=== PATIENT | female | born 1995 | race Caucasian/White ===

== ENCOUNTER 2017-04-21 19:48 | Emergency (ER) | payer SELFPAY ==
--- NOTE | 2017-04-21 20:08 | XR_ITS ---
XR knee LT 3V HISTORY: ITS.REASON: PAIN/NO ACCIDENT ORDERING PHYSICIAN: Rhianna Maria PATIENT AGE: 22 years COMPARISON: None FINDINGS: No fracture or dislocation. No lytic or blastic change. Normal mineralization. No significant arthritic changes evident. There is increased soft tissue density in the suprapatellar region consistent with knee joint effusion IMPRESSION: Suprapatellar effusion otherwise negative
[2017-04-21 20:11] VITALS: BP 127/71; PULSE 89; RESP 20; TEMP 37.1; O2SAT 99; BMI 38.1
--- NOTE | 2017-04-21 20:27 | HMH.EDUTC ---
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) Pain Per Pt Referrals: Arnie Balderas MD [Family Provider] - Time of Disposition: 22:16 Medical Decision Making Vital Signs: 04/21/17 20:11 Temperature 98.7 F Temperature Source Temporal Artery Scan Pulse Rate [Brachial] 89 Respiratory Rate 20 Blood Pressure [Left Arm] 127/71 Blood Pressure Mean [Left Arm] 89 Blood Pressure Source [Left Arm] Automatic Cuff Blood Pressure Position [Left Arm] Sitting 02 Sat by Pulse Oximetry 99 Oxygen Delivery Method Room Air - Lab Data Lab Results 04/21/17 20:50: Uric Acid 5.8 Orders (Tests/Meds): ED MEDICATIONS Discontinued Medications Generic Name Dose Route Start Last Admin Trade Name Freq PRN Reason Stop Dose Admin Ketorolac Tromethamine 60 mg 04/21/17 21:30 Toradol 60mg/2ml Vial IM 04/21/17 21:31 ONCE ONE ORDERS Category Date Time Status Knee XR left 3 views [XR knee LT 3V] Stat Exams 04/21/17 20:08 Taken - Radiology Data #1 Image(s): Knee Image Reviewed: Yes I reviewed the patient's radiology image w/the ED provider Preliminary Findings: No Fracture Seen Discussed with Dr Mason, no fracture seen - Jasen Inquiry Pt receiving controlled substance: No Jasen was queried for this patient: No - Reevaluation(s) Time: 21:30 (Patient denies pregnacy or chance of pregnacy patient given medication for pain) Time: 22:10 (Discussed xray with Dr Mason no fracture seen will refer back to family doctor for further evaluation) [facility] [place] - General Stated complaint: Left knee pain, no accident Mode of Arrival: Ambulatory Source of Information: Patient Limitations: No Limitations Description of Symptoms (Recalled from Triage Doc. by RN): LEFT KNEE IS SWOLLEN AND FEELS TIGHT, HURTS TO WALK. HEENT Symptoms (Recalled from RN notes): No Resp Symptoms (Recalled from RN notes): No Skin Symptoms (Recalled from RN notes): No MS Symptoms (Recalled from RN notes): Yes Functional Status (Recalled from RN notes): NA - History of Present Illness Provider Complaint: Patient state that she went to bed last night and when she woke up this morning her left knee was swollen and painful when she would move it State that she did not do anything to hurt her knee that she was aware of States that she didn't see any bruising, no discoloration, no changes in color, temperature of skin State that it is just swollen and sore - Related Data Previous Rx's Medication Instructions Recorded Ibuprofen [Motrin 600mg 600 mg PO Q6HP PRN #20 tab 04/21/17 Tablet] Allergies Allergy/AdvReac Type Severity Reaction Status Date / Time No Known Allergies Allergy Verified 04/21/17 20:15 - Worker's Comp Is this a Worker's Comp case?: No [facility] History I have reviewed the patient's past medical history: Yes Medical History: Denies:: Cancer, Diabetes Mellitus Type 1, Diabetes Mellitus Type 2, MRSA Amputation: No - *Social History Alcohol Intake: never - Psychiatric History Expresses thoughts of harming self/others: None Suicide Plan Description: No Plan ROS Obtained: Yes All systems reviewed & no additional complaints - Musculoskeletal Comments: Pain and swelling in left knee area, no known injury State that this has occured several times before but then would just go away Physical Exam - General General appearance: alert, in no apparent distress
--- NOTE | 2017-04-21 20:30 | ED_ITS ---
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) Pain Per Pt Referrals: Arnie Balderas MD [Family Provider] - Time of Disposition: 22:16 Medical Decision Making Vital Signs: 04/21/17 20:11 Temperature 98.7 F Temperature Source Temporal Artery Scan Pulse Rate [Brachial] 89 Respiratory Rate 20 Blood Pressure [Left Arm] 127/71 Blood Pressure Mean [Left Arm] 89 Blood Pressure Source [Left Arm] Automatic Cuff Blood Pressure Position [Left Arm] Sitting 02 Sat by Pulse Oximetry 99 Oxygen Delivery Method Room Air - Lab Data Lab Results 04/21/17 20:50: Uric Acid 5.8 Orders (Tests/Meds): ED MEDICATIONS Discontinued Medications Generic Name Dose Route Start Last Admin Trade Name Freq PRN Reason Stop Dose Admin Ketorolac Tromethamine 60 mg 04/21/17 21:30 Toradol 60mg/2ml Vial IM 04/21/17 21:31 ONCE ONE ORDERS Category Date Time Status Knee XR left 3 views [XR knee LT 3V] Stat Exams 04/21/17 20:08 Taken - Radiology Data #1 Image(s): Knee Image Reviewed: Yes I reviewed the patient's radiology image w/the ED provider Preliminary Findings: No Fracture Seen Discussed with Dr Mason, no fracture seen - Jasen Inquiry Pt receiving controlled substance: No Jasen was queried for this patient: No - Reevaluation(s) Time: 21:30 (Patient denies pregnacy or chance of pregnacy patient given medication for pain) Time: 22:10 (Discussed xray with Dr Mason no fracture seen will refer back to family doctor for further evaluation) [facility] [place] - General Stated complaint: Left knee pain, no accident Mode of Arrival: Ambulatory Source of Information: Patient Limitations: No Limitations Description of Symptoms (Recalled from Triage Doc. by RN): LEFT KNEE IS SWOLLEN AND FEELS TIGHT, HURTS TO WALK. HEENT Symptoms (Recalled from RN notes): No Resp Symptoms (Recalled from RN notes): No Skin Symptoms (Recalled from RN notes): No MS Symptoms (Recalled from RN notes): Yes Functional Status (Recalled from RN notes): NA - History of Present Illness Provider Complaint: Patient state that she went to bed last night and when she woke up this morning her left knee was swollen and painful when she would move it State that she did not do anything to hurt her knee that she was aware of States that she didn't see any bruising, no discoloration, no changes in color, temperature of skin State that it is just swollen and sore - Related Data Previous Rx's Medication Instructions Recorded Ibuprofen [Motrin 600mg 600 mg PO Q6HP PRN #20 tab 04/21/17 Tablet] Allergies Allergy/AdvReac Type Severity Reaction Status Date / Time No Known Allergies Allergy Verified 04/21/17 20:15
[2017-04-21 21:11] LABS: Uric Acid 5.8 mg/dL (2.6-7.2)
== END 2017-04-21 22:26 | disposition home or self-care (01) ==
PROVIDERS: Emergency Provider Nurse Practitioner; Family Provider Internal Medicine Adolescent Medicine
DX: M25.562 Pain in left knee (principal)
CPT/HCPCS: 73562; 84550; 96372; 99202; 99282

== ENCOUNTER → 2019-04-10 09:59 | Outpatient (CLI) | payer BC, SELFPAY ==
[2019-04-10 11:54] LABS: HCG,Quantitative 347 mIU/mL
== END ==
PROVIDERS: Visit Provider Nurse Practitioner Obstetrics & Gynecology
DX: Z34.90 Encounter for supervision of normal pregnancy, unspecified, unspecified trimester (principal)
CPT/HCPCS: 36415; 84702

== ENCOUNTER → 2019-04-12 15:45 | Outpatient (CLI) | payer BC, SELFPAY ==
[2019-04-12 19:22] LABS: HCG,Quantitative 940 mIU/mL
== END ==
PROVIDERS: Visit Provider Nurse Practitioner Obstetrics & Gynecology
DX: Z34.90 Encounter for supervision of normal pregnancy, unspecified, unspecified trimester (principal)
CPT/HCPCS: 36415; 84702

== ENCOUNTER → 2019-04-20 16:16 | Outpatient (CLI) | payer BC, SELFPAY ==
[2019-04-20 19:21] LABS: HCG,Quantitative 11543 mIU/mL
== END ==
PROVIDERS: Visit Provider Nurse Practitioner Obstetrics & Gynecology
DX: Z34.90 Encounter for supervision of normal pregnancy, unspecified, unspecified trimester (principal)
CPT/HCPCS: 36415; 84702

== ENCOUNTER → 2019-04-23 11:07 | Outpatient (CLI) | payer BC, SELFPAY ==
[2019-04-23 12:28] LABS: HCG,Quantitative 19780 mIU/mL
== END ==
PROVIDERS: Visit Provider Nurse Practitioner Obstetrics & Gynecology
DX: O20.0 Threatened abortion (principal)
CPT/HCPCS: 36415; 84702

== ENCOUNTER → 2019-05-16 15:38 | Outpatient (CLI) | payer BC, SELFPAY ==
[2019-05-16 17:26] LABS: Basophils % 0.2 % (0.1-2.0); Eosinophils # 0.2 K/mm3 (0.0-0.4); Eosinophils % 1.9 % (0.1-12.0); Hematocrit 38.4 % (37.0-47.0); Hemoglobin 12.7 g/dL (12.2-16.2); Lymphocytes % 26.6 % (10-50); Mean Corpuscular HGB Conc 33.1 g/dL (31.8-35.4); Mean Corpuscular Hemoglobin 30.7 pg (27.0-31.2); Mean Corpuscular Volume 92.7 fl (81-99); Mean Platelet Volume 7.8 fl (7.4-10.4); Monocytes # 0.4 K/mm3 (0.1-1.0); Monocytes % 3.3 % (1.7-9.3); Neutrophils # 7.6 K/mm3 (1.8-7.8); Neutrophils % 67.9 % (37.0-80.0); Platelet Count 215 K/mm3 (142-424); Red Blood Count 4.14 M/mm3 (4.20-5.40); Red Cell Distribution Width 12.3 % (11.5-17.5); White Blood Count 11.1 K/mm3 (4.8-10.8)
[2019-05-18 16:58] LABS: HIV Screen 4th Generation wRfx Non Reactive (Non Reactive); Hepatitis B Surface Antigen Negative (Negative); Hepatitis C Antibody <0.1 s/co ratio (0.0-0.9); Rapid Plasma Reagin Ab Titer Non Reactive (NonRea<1:1); Rubella Antibodies, IgG 1.51 index (Immune >0.99)
== END ==
PROVIDERS: Visit Provider Nurse Practitioner Obstetrics & Gynecology
DX: Z34.90 Encounter for supervision of normal pregnancy, unspecified, unspecified trimester (principal); Z3A.09 9 weeks gestation of pregnancy
CPT/HCPCS: 36415; 85025; 86592; 86703; 86762; 86850; 87340; 87380; G0432

== ENCOUNTER → 2019-08-01 12:59 | Outpatient (CLI) | payer BC, SELFPAY ==
--- NOTE | 2019-08-01 12:59 | US_ITS ---
PROCEDURE: US OB /MATERNAL DETAIL CLINICAL INDICATION: 20 wk gestation COMPARISON: Anatomy exam FINDINGS: There is a single live fetus which is in cephalic presentation. Cervix is closed measuring 4 cm transabdominal. The placenta is anterior and fundal and grade 1. There is an average appearing amount of amniotic fluid. Complete survey performed and was unremarkable on the submitted images as in PACS. No discrete anomalies identified on survey imaging by technologist. Active fetus. Three-vessel cord with satisfactory umbilical cord insertion. 4- chamber heart noted. Survey of brain & ventricles Unremarkable. Face and neck survey unremarkable. Diaphragm and chest views unremarkable. Abdomen: Both kidneys noted and unremarkable. Stomach noted and satisfactory. Spine: Survey of the spine satisfactory with no anomalies identified nor imaged. Both arms and legs noted. Amniotic Fluid: Adequate. Maternal adnexa: No significant findings. Measurements: Average ultrasound age 20weeks 3days. Gestational Age 20 weeks 2 days Estimated due date by ultrasound age 0912/16/2019. Estimated weight 344g BPD = 20weeks 6days OFD = 20 weeks 4 days HC = 19weeks 6days AC = 20weeks 3days FL = 20weeks 3days Growth Percentile= 46% Heart Rate = 152bpm Cerebellum = 20weeks 6days Humerus = 20weeks 5days HC/AC is 1.14 CI is 0.8 FL/BPD is 0.68 FL/AC is 0.22 IMPRESSION: There is a single live fetus in cephalic presentation with an average ultrasound age of 20 weeks and 3 days. All parameters correlate with no obvious anomalies. Please see above for detail Dictated by: Souleymane Chris MD 08/01/2019 15:55 Electronically signed by Souleymane Chris MD in [place] 08/01/2019 15:55
== END ==
PROVIDERS: PCP Internal Medicine Adolescent Medicine; Visit Provider Nurse Practitioner Obstetrics & Gynecology
DX: Z34.90 Encounter for supervision of normal pregnancy, unspecified, unspecified trimester (principal)
CPT/HCPCS: 76811

== ENCOUNTER → 2019-09-29 07:55 | Outpatient (CLI) | payer BC, SELFPAY ==
[2019-09-29 08:37] LABS: Glucose,Fasting 96 mg/dl (74-100)
[2019-09-29 10:00] LABS: Glucose 1 Hour 126 mg/dL (74-100)
== END ==
PROVIDERS: Visit Provider Nurse Practitioner Obstetrics & Gynecology
DX: Z34.90 Encounter for supervision of normal pregnancy, unspecified, unspecified trimester (principal)
CPT/HCPCS: 36415; 82951

== ENCOUNTER → 2019-10-23 13:07 | Outpatient (CLI) | payer BC, SELFPAY ==
[2019-10-23 14:41] LABS: Coronavirus 19 IgG Antibody Negative (Negative); Coronavirus 19 IgM Antibody Negative (Negative)
== END ==
PROVIDERS: Visit Provider Nurse Practitioner Obstetrics & Gynecology
DX: Z03.818 Encounter for observation for suspected exposure to other biological agents ruled out (principal)
CPT/HCPCS: 36415; 86328

== ENCOUNTER → 2019-11-14 17:30 | Outpatient (CLI) | payer BC, SELFPAY | PROVIDERS: Visit Provider Nurse Practitioner Obstetrics & Gynecology | DX: Z34.90 Encounter for supervision of normal pregnancy, unspecified, unspecified trimester (principal) | CPT/HCPCS: 86403 ==

== ENCOUNTER → 2019-11-22 16:13 | Outpatient (CLI) | payer BC, SELFPAY ==
[2019-11-22 22:35] LABS: Coronavirus 19 IgG Antibody Negative (Negative); Coronavirus 19 IgM Antibody Negative (Negative)
== END ==
PROVIDERS: Visit Provider Nurse Practitioner Obstetrics & Gynecology
DX: Z03.818 Encounter for observation for suspected exposure to other biological agents ruled out (principal)
CPT/HCPCS: 36415; 86328

== ENCOUNTER → 2019-11-30 13:46 | Outpatient (CLI) | payer BC, SELFPAY ==
--- NOTE | 2019-11-30 13:46 | US_ITS ---
PROCEDURE: US OB BIOPHYSICAL PROFILE CLINICAL INDICATION: sga Small for gestational age TECHNIQUE: Transabdominal imaging FINDINGS: This study is submitted to ma for interpretation 12/03/2019 at 401 p.m.. There is a single live fetus present which is in cephalic presentation. The cervix is closed and measures 3 cm. The placenta is anterior and grade 2. Biophysical profile is 8 of 8. Amniotic fluid index is normal at 10 cm. Average ultrasound age is 37 weeks 4 days./BPD is 38 weeks 0 days, OFD 37 weeks 5 days, HC 36 weeks 6 days, AC 37 weeks 2 days, FL 37 weeks 5 days chest. All parameters correlate . Estimated weight is 3192 g which is 54th percentile. No obvious anomalies evident. IMPRESSION: Live IUP in cephalic presentation at 37 weeks 4 days. Biophysical profile 8 of 8 Normal amniotic fluid index. Estimated weight is 3192 g which is 54th percentile Dictated by: Souleymane Chris MD 12/03/2019 16:05 Souleymane Chris MD in [place] 12/03/2019 16:05
== END ==
PROVIDERS: Visit Provider Nurse Practitioner Obstetrics & Gynecology
DX: O36.5990 Maternal care for other known or suspected poor fetal growth, unspecified trimester, not applicable or unspecified (principal)
CPT/HCPCS: 76811; 76819

== ENCOUNTER 2019-12-18 16:09 | Inpatient (IN) | payer BC, SELFPAY ==
[2019-12-18 16:11] VITALS: BMI 43.4
[2019-12-18 16:21] VITALS: BP 146/83; PULSE 107; RESP 18; TEMP 36.8; O2SAT 100
[2019-12-18 16:42] LABS: Basophils % 0.2 % (0.1-2.0); Eosinophils # 0.1 K/mm3 (0.0-0.4); Eosinophils % 0.8 % (0.1-12.0); Hematocrit 31.2 % (37.0-47.0); Hemoglobin 10.8 g/dL (12.2-16.2); Lymphocytes % 32.4 % (10-50); Mean Corpuscular HGB Conc 34.5 g/dL (31.8-35.4); Mean Corpuscular Hemoglobin 28.9 pg (27.0-31.2); Mean Corpuscular Volume 83.7 fl (81-99); Mean Platelet Volume 9.8 fl (7.4-10.4); Microscopic, Urine URINE MICROSCOPIC (MICROSCOPIC); Monocytes # 0.4 K/mm3 (0.1-1.0); Monocytes % 4.1 % (1.7-9.3); Neutrophils # 5.9 K/mm3 (1.8-7.8); Neutrophils % 62.6 % (37.0-80.0); Platelet Count 220 K/mm3 (142-424); Red Blood Count 3.73 M/mm3 (4.20-5.40); Red Cell Distribution Width 16.1 % (11.5-17.5); White Blood Count 9.4 K/mm3 (4.8-10.8)
[2019-12-18 16:45] LABS: Appearance,Urine SL CLOUDY (Clear); Bilirubin,Urine Negative (Negative); Blood, Urine TRACE-I (Negative); Color,Urine YELLOW (Yellow); Glucose,Urine (UA) Negative (Negative); Ketones,Urine Negative (Negative); Leukocyte Esterase,Urine Negative (Negative); Nitrate,Urine Negative (Negative); Protein,Urine Negative (Negative); Specific Gravity, Urine >= 1.030 (1.005-1.030); Urobilinogen,Urine 0.2 EU/dl (0.2)
[2019-12-18 16:56] LABS: Amphetamine/Metha Screen,Urine Negative ng/ml (<1000); Benzodiazepines Screen,Urine Negative ng/ml (<200)
[2019-12-18 16:57] LABS: Barbiturates Screen,Urine Negative ng/ml (<200)
[2019-12-18 16:58] LABS: Cannabinoid Screen,Urine Negative ng/ml (<50); Cocaine Screen,Urine Negative ng/ml (<300)
[2019-12-18 16:59] LABS: Methadone Screen,Urine Negative ng/ml (<300)
[2019-12-18 17:00] LABS: Opiate Screen,Urine Negative ng/ml (<300); Phencyclidine Screen,Urine Negative ng/ml (<25)
[2019-12-18 17:02] VITALS: BP 146/83; PULSE 107; RESP 18; TEMP 36.8; O2SAT 100; BMI 43.4
--- NOTE | 2019-12-18 17:26 | HMH.OBAPHP ---
OB - H&P: HPI Antepartum - History of Present Illness Chief complaint: Postdates and slightly increased blood pressure History of present illness: She is a 24-year-old 1 now para 0 at 40 and 2 weeks gestational age. Her blood pressure was slightly elevated this morning in the office. Since she is postdates we have elected to induce her labor. - History of Present Criteria for establishing EDC:: LMP confirmed by 1st trimester US care: good care Ultrasounds: normal 1st trimester US, normal mid trimester US Obstetrical complications: gestational hypertension Medical complications: none (To know what her blood type is) - Labs Blood type: O (+) positive (and she is GBS negative right) Rubella: immune RPR/VDRL: nonreactive GBS status: negative HBsAG: negative [facility] History I have reviewed the patient's past medical history: Yes Medical History: Denies:: Anxiety, Cancer, Depression, Diabetes Mellitus Type 1, Diabetes Mellitus Type 2, MRSA *Have you ever received a pneumonia vaccine?: No *Have you received a flu vaccine this season?: Yes Other Surgeries: Yes: No Previous Surgery. No: Amputation: No Fractures: No - *Social History Last grade of school completed: High school graduate Smoking Status: Never smoker Alcohol Intake: current Alcohol Intake Frequency:: holidays/special occasions only Substance Use Type: denies use *Occupational Status:: employed Household Members: significant other *Travel in the last 8 weeks: None - Psychiatric History Pschychiatric History:: Denies:: Anxiety, Depression Family Hx:: No significant family history Para: 0 Review of Systems - Review of Systems Review of systems:: pertinent systems reviewed and negative unless documented below Meds Home Medications Medication Instructions Recorded Confirmed Type prenat.vits,edna,lia-tuct-jpkcm 1 tab PO DAILY 04/30/19 12/18/19 History Famotidine [Acid Modular Set Crew Member] 20 mg PO DAILY 12/18/19 12/18/19 History Omeprazole Magnesium 20 mg PO DAILY 12/18/19 12/18/19 History Allergies Allergy/AdvReac Type Severity Reaction Status Date / Time No Known Allergies Allergy Verified 12/18/19 09:39 OB - H&P: Exam - Physical Exam Vital signs: Temp Pulse Resp BP Pulse Ox 98.2 F 107 H 18 146/83 H 100 12/18/19 17:02 12/18/19 17:02 12/18/19 17:02 12/18/19 17:02 12/18/19 17:02 - Constitutional no acute distress - Routine HEENT Exam Head: Present: normocephalic Eye: Present: EOMI, PERRL ENT: Present: mucous membranes moist - Routine Neck Exam Present: supple, full ROM - Routine Respiratory Exam Absent: accessory muscle use (good air entry bilaterally), respiratory distress, wheezes, crackles - Routine Cardiovascular Exam Present: RRR. Absent: murmur - Routine Abdominal Exam Present: soft, normoactive bowel sounds. Absent: tenderness, distended, guarding - Routine Rectal Exam Patient deferred: visual exam, digital exam - Routine Exam Patient deferred: external exam, groin exam, perineal exam - Routine Extremities Exam Present: full ROM. Absent: cyanosis, edema - Routine Skin Exam Present: intact. Absent: cyanosis - Routine Neurological Exam Present: alert, oriented X3 - Routine Psychiatric Exam Present: normal affect OB - Results - Labs Labs: Short CBC 12/18/19 Range/Units 16:30 WBC 9.4 (4.8-10.8) K/mm3 Hgb 10.8 L (12.2-16.2) g/dL Hct 31.2 L (37.0-47.0) % Plt Count 220 (142-424) K/mm3 Urine 12/18/19 Range/Units 16:30 Urine Color Yellow (Yellow) Urine Appearance Sl cloudy (Clear) Urine pH 6.0 (5.0-8.5) Ur Specific [place] >= 1.030 (1.005-1.030) Urine Protein Negative (Negative) Urine Glucose (UA) Negative (Negative) OB - A/P Antepartum (1) Post-term Current visit: Yes Status: Acute (2) Gestational hypertension Current visit: Yes Status: Acute - Addition
[2019-12-18 17:40] LABS: Coronavirus 19 IgG Antibody Negative (Negative); Coronavirus 19 IgM Antibody Negative (Negative)
[2019-12-18 17:57] LABS: Bacteria,Urine 2+ /lpf
--- NOTE | 2019-12-18 19:15 | PC.NURSE ---
Report received from SYD Brumfield.
[2019-12-19] VITALS (20 sets, daily range): BP systolic 122–174; BP diastolic 57–95; PULSE 77–114; RESP 12–18; TEMP 36.4–36.8; O2SAT 99–100
--- NOTE | 2019-12-19 08:11 | HMH.LABNOT ---
Labor Note - Subjective: Date: 12/19/19 Time: 07:15 regular contraction - Objective: NST:: Reactive Contractions:: every 2-3 minutes Cervical Dilation:: 2 Effacement:: 75% Station: -1 Membranes: artificially ruptured Comment:: Clear fluid - Fetus: Monitoring?: Yes monitoring type:: Internal and External Comment:: I inserted an IUPC - Assessment: Labor progressing?: Yes Cephalopelvic disproportion?: No Patient Problems: All Active Problems Post-term (Acute) Gestational hypertension (Acute) (Acute)
[2019-12-19 08:48] LABS: Basophils % 0.3 % (0.1-2.0); Eosinophils # 0.1 K/mm3 (0.0-0.4); Eosinophils % 1.1 % (0.1-12.0); Hematocrit 33.5 % (37.0-47.0); Lymphocytes # 3.3 K/mm3 (0.7-4.5); Lymphocytes % 32.6 % (10-50); Mean Corpuscular HGB Conc 32.9 g/dL (31.8-35.4); Mean Corpuscular Hemoglobin 28.3 pg (27.0-31.2); Mean Platelet Volume 8.9 fl (7.4-10.4); Monocytes # 0.5 K/mm3 (0.1-1.0); Monocytes % 4.8 % (1.7-9.3); Neutrophils # 6.1 K/mm3 (1.8-7.8); Neutrophils % 61.2 % (37.0-80.0); Platelet Count 225 K/mm3 (142-424); Red Cell Distribution Width 15.9 % (11.5-17.5)
[2019-12-19 08:51] LABS: Chloride 106 mmol/L (98-107); Potassium 4.1 mmoL/L (3.5-5.1); Sodium 138 mmol/L (136-145)
[2019-12-19 08:54] LABS: Alanine Aminotransferase 14 U/L (12-78); Anion Gap 13.1 mEq/L (5-15); Aspartate Amino Transferase 25 U/L (14-36); Blood Urea Nitrogen 8 mg/dl (7-17); Calcium 9.3 mg/dl (8.4-10.2); Carbon Dioxide 23 mmol/L (22.0-30.0); Creatinine Clearance Estimated 131 mL/min (50-200); Estimated Glomerular Filt Rate 152 ml/min (>60); GFR (African American) 183 ML/MIN (>60); Glucose 112 mg/dl (74-100)
[2019-12-19 08:55] LABS: Magnesium 1.8 mg/dl (1.6-2.3)
[2019-12-19 09:05] LABS: Activated Partial Thrombo Time 24.1 seconds (23.6-34.0); Fibrinogen 500 mg/dL (204-500); INR 0.95 (0.9-1.1); Prothrombin Time 9.8 seconds (9.4-11.8)
[2019-12-19 09:11] LABS: Uric Acid 5.1 mg/dl (2.5-6.2)
[2019-12-19 09:19] LABS: D-Dimer 1.32 ug/mL (0.15-8.0)
--- NOTE | 2019-12-19 09:41 | HMH.LABNOT ---
Labor Note - Subjective: Date: 12/19/19 Time: 09:41 regular contraction - Objective: NST:: Reactive Contractions:: every 2-3 minutes Cervical Dilation:: 2 Effacement:: 90% Station: -1 Membranes: artificially ruptured - Fetus: Monitoring?: Yes monitoring type:: Internal and External - Assessment: Labor progressing?: Yes Cephalopelvic disproportion?: No Patient Problems: All Active Problems Post-term (Acute) Gestational hypertension (Acute) (Acute) - Plan: Anesthesia for epidural?: No Continue to labor down?: Yes Plan for ?: No Continue to monitor?: Yes Start pushing?: No Comment:: Her blood pressure was quite elevated in the 170/100 range. I suspect it was result of having discomfort. Regardless we have started her on magnesium sulfate and we have done a PIH work-up.
--- NOTE | 2019-12-19 10:41 | HMH.ANESCL ---
[facility] Anesthesia Checklist - Patient Identification Patient Identification: Arm Band, Verbal (Name & ) - Structural Data Admitted From: Inpatient Planned Operative Procedure/s: labour epidural Consent for Planned Operative Procedure(s) Verified: Yes Verified Documents: History and Physical - NPO Status Verified Time NPO: 05:00 - Chart Verification Results Verified: CBC, BMP - Additional verifications Patient : Yes Anesthesia Reactions: No Hx Blood Transfusions: No Blood Transfusion Reaction: No Cephalosporin Allergy: No Previous Colonoscopy: No - Cardiovascular Assessment Heart Sounds: S1 & S2 Pulse Strength: Baseline Pulse Rhythm: Regular Peripheral Edema: No - Airway Assessment C-Spine Mobility Assessed: Yes TMJ Mobility Assessed: Yes Dentition: Good Dentition - Neurological Assessment Level of Consciousness: Awake, Alert, Appropriate Hx Seizures: No Numbness or tingling in extremities: No - Anesthesia Plan Anesthesia Risk discussed: Yes Anesthesia Plan: Verified ASA Class: II Anesthesia Type: Epidural [facility] History I have reviewed the patient's past medical history: Yes Medical History: Denies:: Anxiety, Cancer, Depression, Diabetes Mellitus Type 1, Diabetes Mellitus Type 2, MRSA *Have you ever received a pneumonia vaccine?: No *Have you received a flu vaccine this season?: Yes Anesthesia experience/problems:: none Other Surgeries: Yes: No Previous Surgery. No: Amputation: No Fractures: No - *Social History Last grade of school completed: High school graduate Smoking Status: Never smoker Alcohol Intake: current Alcohol Intake Frequency:: holidays/special occasions only Substance Use Type: denies use *Occupational Status:: employed Household Members: significant other *Travel in the last 8 weeks: None - Psychiatric History Pschychiatric History:: Denies:: Anxiety, Depression Family Hx:: No significant family history Para: 0
--- NOTE | 2019-12-19 11:51 | HMH.LABNOT ---
Labor Note - Subjective: Date: 12/19/19 Time: 11:51 regular contraction - Objective: NST:: Reactive Contractions:: every 2-3 minutes Cervical Dilation:: 2 Effacement:: 90% Station: -1 Membranes: artificially ruptured - Fetus: Monitoring?: Yes monitoring type:: Internal and External - Assessment: Labor progressing?: No Cephalopelvic disproportion?: No Patient Problems: All Active Problems Post-term (Acute) Gestational hypertension (Acute) (Acute) - Plan: Anesthesia for epidural?: Yes Continue to labor down?: Yes Plan for ?: No Continue to monitor?: Yes
--- NOTE | 2019-12-19 14:03 | HMH.LABNOT ---
Labor Note - Subjective: Date: 12/19/19 Time: 14:03 regular contraction - Objective: NST:: Reactive Contractions:: every 2-3 minutes Effacement:: 90% Station: -1 Membranes: artificially ruptured - Assessment: Labor progressing?: No Cephalopelvic disproportion?: Yes Patient Problems: All Active Problems Post-term (Acute) Gestational hypertension (Acute) (Acute) - Plan: Anesthesia for epidural?: Yes Continue to labor down?: Yes Plan for ?: Yes Continue to monitor?: Yes Start pushing?: No Comment:: She remains at 2 to 3 cm. She has not really made much progress over the last few hours. We will see how she does over the next couple of hours but if she does not change then we will consider a later this afternoon.
--- NOTE | 2019-12-19 16:06 | HMH.LABNOT ---
Labor Note - Subjective: Date: 12/19/19 Time: 16:06 regular contraction - Objective: NST:: Reactive Contractions:: every 2-3 minutes Cervical Dilation:: 3 Effacement:: 90% Station: -1 Membranes: artificially ruptured - Fetus: Monitoring?: Yes monitoring type:: Internal and External - Assessment: Labor progressing?: No Cephalopelvic disproportion?: Yes Patient Problems: All Active Problems Post-term (Acute) Gestational hypertension (Acute) (Acute) - Plan: Anesthesia for epidural?: Yes Continue to labor down?: No Plan for ?: Yes Continue to monitor?: Yes Start pushing?: No Comment:: She really has not progressed much all day. She has made it to 3 cm. She is having regular contractions. We will go ahead with a for failure to progress. We discussed the risks of surgery that includes bleeding, infection, injuries to other structures. We discussed the rare risk of DVT. All questions were answered and consents were signed.
--- NOTE | 2019-12-19 17:38 | HMH.OPNOTE ---
Date of procedure: 12/19/19 Pre-op Diagnosis:: Postterm , pelvic disproportion, -induced hypertension Post-op Diagnosis:: Postterm , pelvic disproportion, urgency induced hypertension Procedure performed:: Primary lower segment transverse section Surgeon:: Fabrice Jaimes MD Direct Marketing Manager(s):: Dr. Young TOWER LOADER OPERATOR:: Fernando Joel Anesthesia: epidural Estimated blood loss (mL): 800 Clinical Note:: She is a 24-year-old 1 now para 0 who was 40 and 2 weeks gestational age. She had slight increase in her blood pressure and as result that we elected to induce her labor at term. She had Cervidil placed on the evening of December 18, 2019. In the morning of the we ruptured her membranes and she was started on IV oxytocin. She really failed to progress beyond about 3 cm. As result of that pelvic disproportion was diagnosed she was taken for a primary lower segment transverse section. The risks and benefits of surgery were discussed with the patient and her boyfriend prior to surgery. Operative findings:: She delivered a liveborn female child at 5:11 PM in the afternoon of December 19, 2019. The baby had Apgars of 9 at 1 minute and 9 at 5 minutes. pH was not done. Baby weighed 8 pounds 9 ounces. Ovaries and tubes appeared normal although the ovaries were polycystic. Operative note:: She was taken to the operating room where spinal anesthesia was found be adequate. She was prepped and draped in normal sterile fashion in the supine position with a leftward tilt. A [place] catheter was in the bladder. A Pfannenstiel skin incision was made with knife then carried through to the underlying layer of fascia with cautery. The fascia was opened in the midline with cautery and extended laterally using Sandoval scissors. [place] clamps were applied to the superior aspect of the fascial incision which was tented up and the underlying rectus muscles dissected off using cautery. The [place] clamps were then applied to the inferior aspect of the fascial incision which in a similar fashion was tented up and the underlying rectus muscles dissected off using cautery. The rectus muscles were then in the midline, the peritoneum identified, and entered sharply with Metzenbaum scissors. This incision was then extended superiorly and inferiorly with cautery. We had good visualization of the bladder inferiorly. The bladder peritoneum was then opened in the midline and extended laterally using Metzenbaum scissors. A bladder flap was created digitally. Transverse incision was made through the uterine muscle to the amnion. This incision was then extended laterally using fingers traction. The amnion was entered sharply with knife. There was clear amniotic fluid. The infant's head was then delivered atraumatically. This was followed by the anterior shoulder and the rest of the infant's body atraumatically. The oropharynx and nasopharynx were bulb suctioned. We allowed the cord to continue to pulsate for approximately 1 minute. The cord was then doubly clamped and cut. The was then handed off to Dr. Beach who assigned Apgars of 9 at 1 minute and 9 at 5 minutes. We then obtained cord blood. Using gentle traction on the cord and countertraction on the fundus I was able to easily deliver the placenta intact. It had a normal three-vessel cord. The uterus was then cleared of clots and debris . The uterus was then exteriorized from the abdominal cavity. The uterine incision was then closed using running 0 Vicryl suture in a locked fashion. A second layer of the same suture was used to imbricate the first layer. The bladder peritoneum was then closed using running 2-0 Vicryl suture in a locked fashion. The gutters and cul-de-sac were then cleared of clots and debris . Once again hemostasis was assured. The uterus was then returned to the abdominal cavity. The peritoneum was grasped with Coral clamps and c
--- NOTE | 2019-12-19 17:48 | P.PN_ITS ---
[facility] Anesthesia Record Part I Intake, IV Amount: 1,500 Estimated blood loss (mL): 800 Urine output (mL): 400 Blood Pressure: 127/60 SaO2: 99 Pulse Rate: 88 Respiratory Rate: 12 Temperature: 97.6 F Patient is:: Awake, Stable Stable to PACU at:: 17:45
[2019-12-20] VITALS (11 sets, daily range): BP systolic 110–140; BP diastolic 55–82; PULSE 79–88; RESP 20; TEMP 36.4–36.5; O2SAT 100
[2019-12-20 06:53] LABS: Magnesium 5.4 mg/dl (1.6-2.3)
[2019-12-20 06:56] LABS: Hematocrit 27.1 % (37.0-47.0)
--- NOTE | 2019-12-20 10:03 | P.PN_ITS ---
[facility] Anesthesia Record Part II Discharge Time: 18:25 Destination: Obstetric PACU nurse assessment reviewed?: Yes Patient Condition:: Good Anesthesia Complications:: None Swallowing reflex intact?: Yes Cyanosis?: No Blood Pressure: 140/82 Pulse Rate: 79 Temperature: 97.5 F Mental Status: Alert & Oriented Pain level:: 0 Nausea and/or vomitting:: None Intake, IV Amount: 0
--- NOTE | 2019-12-21 04:17 | PC.NURSE ---
LTV incision cleansed with 1/2 strength peroxide and sterile water. Incision well approximated. Brent are straight and intact. Unremarkable in appearance. No drainage, bleeding, bruising, edema, redness, etc. Healing well.
[2019-12-21 08:05] VITALS: BP 130/61; PULSE 81; RESP 18; TEMP 36.8; O2SAT 99
[2019-12-21 12:04] VITALS: BP 134/67; PULSE 88; RESP 18; TEMP 36.9; O2SAT 99
--- NOTE | 2019-12-21 12:19 | P.PN_ITS ---
Internal Medicine - PN: Subj *Date: 12/20/19 *Time: 09:00 Interval history: She is doing very well this morning. She is eating and drinking and ambulating. She is breast-feeding. Her blood pressure is normal on magnesium sulfate. Exam Vital signs and Labs for Last 24 Hours: Temp Pulse Resp BP Pulse Ox 98.3 F 81 18 130/61 99 12/21/19 08:05 12/21/19 08:05 12/21/19 08:05 12/21/19 08:05 12/21/19 08:05 I & O for Last 24 hours: Intake & Output 12/19/19 12/20/19 12/21/19 12/22/19 11:59 11:59 11:59 11:59 Intake Total 1500 / 1500 Output Total 2125 / 2125 Balance 1500 / 1500 -2125 / -2125 Weight 230 lb Microbiology Reports for the Last 24 Hours: Microbiology 12/18/19 16:30 Urine,Clean Catch Urine Culture - Final Multiple organisms, suggests contamination. - Constitutional no acute distress - *Routine HEENT Exam Head: Present: normocephalic Eye: Present: EOMI, PERRL ENT: Present: mucous membranes moist Assessment and Plan (1) Post-term Current visit: Yes Status: Acute Category: Medical Code(s): O48.0 - Post- term (2) Gestational hypertension Current visit: Yes Status: Acute Category: Medical Code(s): O13.9 - Gestational [-induced] hypertension without significant proteinuria, unspecified trimester (3) pelvic disproportion antepartum Current visit: Yes Status: Acute Category: Medical Code(s): O33.9 - Maternal care for disproportion, unspecified (4) delivery delivered Current visit: Yes Status: Acute Category: Medical Code(s): O82 - Encounter for delivery without indication - Assessment and plan all Dx Assessment and Plan for all problems:: She is doing very well. We will keep her magnesium sulfate going for a full 24 hours. We will consider an antihypertensive if her blood pressure rises.
--- NOTE | 2019-12-21 12:21 | P.PN_ITS ---
Internal Medicine - PN: Subj *Date: 12/21/19 *Time: 09:50 Interval history: She is doing well this morning. She has been off her magnesium sulfate for about 12 hours. Her blood pressures are normal. She denies any headache or scotomata. She is breast-feeding. Her lochia is normal. Her pain is much improved. Exam Vital signs and Labs for Last 24 Hours: Temp Pulse Resp BP Pulse Ox 98.3 F 81 18 130/61 99 12/21/19 08:05 12/21/19 08:05 12/21/19 08:05 12/21/19 08:05 12/21/19 08:05 I & O for Last 24 hours: Intake & Output 12/19/19 12/20/19 12/21/19 12/22/19 11:59 11:59 11:59 11:59 Intake Total 1500 / 1500 Output Total 2125 / 2125 Balance 1500 / 1500 -2125 / -2125 Weight 230 lb Microbiology Reports for the Last 24 Hours: Microbiology 12/18/19 16:30 Urine,Clean Catch Urine Culture - Final Multiple organisms, suggests contamination. - Constitutional no acute distress - *Routine Neck Exam Present: supple. Absent: lymphadenopathy Assessment and Plan (1) Post-term Current visit: Yes Status: Acute Category: Medical Code(s): O48.0 - Post- term (2) Gestational hypertension Current visit: Yes Status: Acute Category: Medical Code(s): O13.9 - Gestational [-induced] hypertension without significant proteinuria, unspecified trimester (3) pelvic disproportion antepartum Current visit: Yes Status: Acute Category: Medical Code(s): O33.9 - Maternal care for disproportion, unspecified (4) delivery delivered Current visit: Yes Status: Acute Category: Medical Code(s): O82 - Encounter for delivery without indication - Assessment and plan all Dx Assessment and Plan for all problems:: She continues to do well. Her blood pressures have stabilized. We will plan to send her home tomorrow.
[2019-12-21 16:20] VITALS: BP 125/72; PULSE 89; RESP 18; TEMP 37.2; O2SAT 99
--- NOTE | 2019-12-21 19:15 | PC.NURSE ---
Report received from SYD Brumfield.
[2019-12-22 08:30] VITALS: BP 137/75; PULSE 95; RESP 18; TEMP 36.6; O2SAT 99
--- NOTE | 2019-12-22 10:09 | HMH.OBDCSM ---
General - General Admission date:: 12/18/19 Discharge date: 12/22/19 HPI - History of Present Illness History of present illness: She is a 24-year-old 1 now para 1 who is 40+ weeks gestational age. She had slightly increased blood pressure and as result of that we elected to induce her labor at term. Hospital Course Hospital Course: She had Cervidil placed on the evening prior to her delivery. The following morning the Cervidil was removed and she was started on IV oxytocin. She really only progressed to about 3 cm. As result of that pelvic disproportion was diagnosed and she was taken for a primary lower segment transverse section. She delivered a liveborn female child by section on December 19, 2019 at 5:11 PM. The baby weighed 8 pounds 9 ounces and was 20 inches long. She had Apgars of 9 at 1 minute and 9 at 5 minutes. She has done well postoperatively Story remained afebrile throughout her hospitalization. She is eating and drinking and ambulating. She is breast-feeding. She had some slightly elevated blood pressure immediately and we elected to place her on magnesium sulfate. She had this for 24 hours . Since then her blood pressures have been in the 130s over 70 range. She denies headache, scotomata or epigastric pain. Her blood work was all normal. She is discharged home to follow-up with me in approximately 2 weeks time. She will continue with her vitamins and iron. She was given the usual instructions with respect to limiting her activity, driving and sexual activity. She was given a prescription for Percocet 5/325 number 30 tablets. She will take a stool softener. Her condition on discharge is stable and improved. Rhogam Administration: Not Indicated Objective Vital signs: Temp Pulse Resp BP Pulse Ox 97.8 F 95 H 18 137/75 99 12/22/19 08:30 12/22/19 08:30 12/22/19 08:30 12/22/19 08:30 12/22/19 08:30 no acute distress - *Routine HEENT Exam Head: Present: normocephalic Eye: Present: EOMI, PERRL ENT: Present: mucous membranes moist DS: Diagnosis - Discharge Diagnosis (1) Post-term Status: Acute (2) Gestational hypertension Status: Acute (3) pelvic disproportion antepartum Status: Acute (4) delivery delivered Status: Acute Discharge Plan - Patient Discharge Instructions ACTIVITY: No heavy lifting DIET: continue same diet Additional Instructions: No driving or heavy lifting, Nothing in the vagina for 6 weeks Drink plenty of fluids Patient Instructions: Pre-eclampsia, Depression, Hemorrhage, DI for , [facility] Post Discharge Instructions, Preventing the Spread of Coronavirus Discharge Instructions - Follow up Plan Follow up with: Fabrice Jaimes MD [Staff Physician] - Disposition: Home, Self-Senior Living Medications: Home Medications Medication Instructions Recorded Confirmed Type prenat.vits,edna,[id number] 1 tab PO DAILY 04/30/19 12/18/19 History RX: Famotidine [[employer]] 20 mg PO DAILY 12/18/19 12/18/19 History RX: Omeprazole Magnesium 20 mg PO DAILY 12/18/19 12/18/19 History Oxycodone HCl/Acetaminophen 1 tab PO Q4-6H PRN #30 tablet 12/22/19 Rx [Percocet 5/325mg tablet] Prescriptions/Medication Reconciliation: New Oxycodone HCl/Acetaminophen [Percocet 5/325mg tablet] 1 tab PO Q4-6H PRN #30 tablet PRN Reason: Severe Pain Continued prenat.vits,edna,[id number] 1 tab PO DAILY RX: Famotidine [[employer]] 20 mg PO DAILY RX: Omeprazole Magnesium 20 mg PO DAILY - Problem Reconciliation Problems Reviewed?: Yes
== END 2019-12-22 11:53 | disposition home or self-care (01) | DRG 788 ==
PROVIDERS: Admitting Provider Nurse Practitioner Obstetrics & Gynecology; PCP Internal Medicine Adolescent Medicine; Visit Provider Nurse Practitioner Obstetrics & Gynecology
PROC: 10D00Z1 Extraction of Products of Conception, Low, Open Approach (ICD-10-PCS; CPT 59514; principal; 2019-12-19 17:00)
DX: O13.3 Gestational [pregnancy-induced] hypertension without significant proteinuria, third trimester (principal); Z3A.40 40 weeks gestation of pregnancy; Z37.0 Single live birth; O65.8 Obstructed labor due to other maternal pelvic abnormalities
CPT/HCPCS: 59514; 36415; 59025; 80048; 80305; 81001; 83735; 84450; 84460; 84550; 85014; 85018; 85025; 85378; 85384; 85610; 85730; 86328; 86850; 87086; 94761; C1758

== ENCOUNTER → 2020-05-17 10:17 | Outpatient (CLI) | payer BC, SELFPAY ==
[2020-05-17 11:47] LABS: HCG Qualitative, Serum Negative (Negative)
== END ==
PROVIDERS: Visit Provider Nurse Practitioner Obstetrics & Gynecology
DX: Z32.00 Encounter for pregnancy test, result unknown (principal)
CPT/HCPCS: 36415; 84703

== ENCOUNTER → 2020-09-03 17:41 | Outpatient (CLI) | payer BC, SELFPAY ==
[2020-09-08 09:12] LABS: Neisseria gonorrhoeae, NAA Negative (Negative)
== END ==
PROVIDERS: Visit Provider Nurse Practitioner Obstetrics & Gynecology
DX: Z72.51 High risk heterosexual behavior (principal)
CPT/HCPCS: 87491; 87591

== ENCOUNTER → 2022-09-04 10:09 | Outpatient (CLI) | payer BC, SELFPAY ==
[2022-09-04 10:48] LABS: Basophils % 0.4 % (0.1-2.0); Eosinophils # 0.3 K/mm3 (0.0-0.4); Eosinophils % 2.8 % (0.1-12.0); Hematocrit 42.4 % (37.0-47.0); Hemoglobin 13.6 g/dL (12.2-16.2); Lymphocytes # 2.8 K/mm3 (0.7-4.5); Lymphocytes % 31.9 % (10-50); Mean Corpuscular Hemoglobin 28.6 pg (27.0-31.2); Mean Corpuscular Volume 89.3 fl (81-99); Mean Platelet Volume 7.4 fl (7.4-10.4); Monocytes # 0.3 K/mm3 (0.1-1.0); Monocytes % 3.8 % (1.7-9.3); Neutrophils # 5.4 K/mm3 (1.8-7.8); Neutrophils % 61.1 % (37.0-80.0); Platelet Count 215 K/mm3 (142-424); Red Blood Count 4.74 M/mm3 (4.20-5.40); Red Cell Distribution Width 13.1 % (11.5-17.5); White Blood Count 8.9 K/mm3 (4.8-10.8)
[2022-09-04 11:09] LABS: Alanine Aminotransferase 23 U/L (12-78); Albumin Level 4.4 g/dl (3.5-5.0); Albumin/Globulin Ratio 1.6 (1.1-1.8); Alkaline Phosphatase 76 U/L (38-126); Anion Gap 15.2 mEq/L (5-15); Aspartate Amino Transferase 25 U/L (14-36); Bilirubin,Total 0.4 mg/dl (0.2-1.3); Blood Urea Nitrogen 16 mg/dl (7-17); Calcium 8.9 mg/dl (8.4-10.2); Carbon Dioxide 26 mmol/L (22.0-30.0); Chloride 103 mmol/L (98-107); Chol/HDL Ratio 2.5 (1-3.5); Cholesterol 162 mg/dl (140-200); Estimated Glomerular Filt Rate 120 ml/min (>60); GFR (African American) 145 ML/MIN (>60); Globulin 2.8 g/dL (1.3-3.2); Glucose 86 mg/dl (74-100); HDL Cholesterol 64 mg/dl (40-60); Potassium 4.2 mmoL/L (3.5-5.1); Sodium 140 mmol/L (136-145); Total Protein,Serum 7.2 g/dl (6.3-8.2); Triglycerides 68 mg/dl (30-150); VLDL Cholesterol 14 mg/dL (0-40)
[2022-09-04 11:20] LABS: Direct LDL Cholesterol 86.45 mg/dL (100-129)
[2022-09-04 11:39] LABS: Thyroid Stimulating Hormone 1.76 uIU/mL (0.465-4.68)
[2022-09-07 12:27] LABS: Insulin Level Total 14.9 uIU/mL (2.6-24.9)
== END ==
PROVIDERS: PCP Nurse Practitioner Family; Visit Provider Nurse Practitioner Family
DX: N92.6 Irregular menstruation, unspecified (principal); E66.9 Obesity, unspecified; Z68.43 Body mass index [BMI] 50.0-59.9, adult; Z79.899 Other long term (current) drug therapy
CPT/HCPCS: 36415; 80053; 80061; 83036; 83525; 84443; 85025

== ENCOUNTER 2023-06-07 10:43 | Outpatient (CLI) | payer BC, SELFPAY ==
--- NOTE | 2023-06-07 10:44 | US_ITS ---
PROCEDURE: US TRANSVAGINAL CLINICAL INDICATION: Pelvic Pain and Check for Ovarian Cysts COMPARISON: No exams were available for comparison FINDINGS: Transvaginal sonographic images of the pelvis were obtained. UTERUS: 8.6 cm x 6.0cmx 4.3cm anteverted with a combined endometrial thickness of 7 mm. There are several small hyperechoic areas along the endometrial myometrial junction. There are multiple nabothian cysts within the cervix. The largest measures 8 mm. A scar is visualized. LEFT OVARY: 4.1cmx3.5 cmx2.9cm with a volume of 22.1ml. There are multiple small follicles within the left ovary. It has a polycystic appearance. . RIGHT OVARY: 4.5cmx 3.5dma1cm with a volume of 22.5ml. There are multiple small follicles in the right ovary. It has a polycystic appearance. Both ovaries are seen and appear normal. Doppler flow to both ovaries are seen. There is no fluid in the cul-de-sac. IMPRESSION: 1. Anteverted uterus normal in shape and size. The endometrium is thin. 2. There are several small hyperechoic areas along the endometrial myometrial junction. 3. Both ovaries are seen and appear polycystic. 4. No fluid in the cul-de-sac. Dictated by: Fabrice Jaimes MD 06/07/2023 13:38 Fabrice Jaimes MD in [place] 06/07/2023 13:38
== END 2023-06-07 23:59 ==
LOC: RAD 10:44
PROVIDERS: PCP Nurse Practitioner Family; Visit Provider Nurse Practitioner Obstetrics & Gynecology
DX: R10.2 Pelvic and perineal pain (principal)
CPT/HCPCS: 76830

== ENCOUNTER 2023-12-02 12:48 | Outpatient (CLI) | payer BC, SELFPAY ==
[2023-12-02 16:59] LABS: HIV (1&2) Antibody Rapid NONREACTIVE (NONREACTIVE)
[2023-12-04 08:10] LABS: HCV Ab Non Reactive (Non Reactive); Hepatitis B Surface Antigen Negative (Negative); Rapid Plasma Reagin Ab Titer Non Reactive titer (NonRea<1:1)
== END 2023-12-02 23:59 | disposition home or self-care (01) ==
LOC: LAB 12:49
PROVIDERS: PCP Nurse Practitioner Family; Visit Provider Nurse Practitioner Obstetrics & Gynecology
DX: Z11.3 Encounter for screening for infections with a predominantly sexual mode of transmission (principal)
CPT/HCPCS: 36415; 86593; 87340

== ENCOUNTER 2024-06-22 08:28 | Outpatient (CLI) | payer OTHER, SELFPAY ==
[2024-06-22 13:12] LABS: Coronavirus 19, PCR Not Detected (NotDetected); Human Rhinovirus Not Detected (NotDetected); Influenza A, PCR Not Detected (NotDetected); Influenza B, PCR Not Detected (NotDetected); Respiratory Syncytial Virus Not Detected (NotDetected)
== END 2024-06-22 23:59 | disposition home or self-care (01) ==
LOC: LAB.DROPOF 06-25 10:28
PROVIDERS: PCP Nurse Practitioner; Visit Provider Nurse Practitioner
DX: J02.0 Streptococcal pharyngitis (principal)
CPT/HCPCS: 87631

== ENCOUNTER 2025-04-08 14:03 | Outpatient (CLI) | payer OTHER, SELFPAY ==
[2025-04-08 20:39] LABS: Coronavirus 19, PCR Not Detected (NotDetected); Influenza A, PCR Not Detected (NotDetected); Influenza B, PCR Not Detected (NotDetected)
--- OUTSIDE RECORDS SUMMARY | 2025-04-09 12:09 | XMS_ITS | Clinical Summary ---
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 Name Role Phone Arnie Balderas Primary Care Provider Allergies No known active allergies Medications No known medications Active Problems No known active problems Social History Tobacco Use Types Packs/Day Years Used Date Smoking Tobacco: Never Smokeless Tobacco: Never Intimate Partner Violence Answer Date R ecorded Insults You Not on file 07/24/2020 Threatens You Not on file 07/24/2020 Screams at You Not on file 07/24/2020 Physically Hurt Not on file 07/24/2020 Intimate Partner Violence Score Not on file 07/24/2020 Depression Answer Date Recorded PHQ-9 Total Score 0 06/19/2019 Stress Answer Date Recorded Stress in your Life Not on file 02/14/2024 Dealing with Stress 3 02/14/2024 Comments Unknown Sex and Gender Information Value Date Recorded Sex Assigned at Not on file Legal Sex Female 4:09 PM [employer]CR[employer] Gender Identity Not on file Sexual Orientation Not on file Last Filed Vital Signs Vital Sign Reading Time Taken Comments Blood Pressure 128/82 06/18/2019 6:43 AM EDT Pulse 73 11/07/2020 2:25 PM EDT Temperature 36.8 C (98.3 F) 11/07/2020 2:25 PM EDT Respiratory Rate 14 06/18/2019 6:43 AM EDT Oxygen Saturation 98% 11/07/2020 2:25 PM EDT Inhaled Oxygen Concentration - - Weight 90.2 kg (198 lb 12.8 oz) 03/15/2018 2:35 PM EST Height 160 cm (5' 3 ) 03/15/2018 2:35 PM EST Body Mass Index 35.22 03/15/2018 2:35 PM EST Plan of Treatment Health Maintenance Due Date Last Done Comments Cervical Cancer Screening Combo 1995 Dental Cleaning/Exam 1995 HIV Screening 1995 HPV only / HPV + Pap 1995 Hepatitis C Screening 1995 Pap only testing 1995 HPV Immunization (1 - 2-dose series) 2006 Hep B Infection Screening - Triple Screen 2013 Hepatitis B Immunization (1 of 3 - 19+ 3-dose series) 2014 Tetanus Diphtheria and Pertu ssis Immunization (1 - Tdap) 2014 Annual Preventive Exam 03/15/2019 03/15/2018 Covid-19 Immunization (1 - 2 season) 2024 Influenza Immunization (#1) 2024 HIB Immunization Aged Out No longer e ligible based on patient's age to complete this topic Hepatitis A Immunization Aged Out No longer eligible based on patient's age to complete this topic Pneumococcal Immunization Aged Out No longer eligible based on patient's age to complete this topic Polio Immunization Aged Out No longer eligible based on patient's age to complete this topic Varicella Immunization Aged Out No lo nger eligible based on patient's age to complete this topic Insurance OPT OUT NO COPAY NB Care Teams Rework Machine Operator Relationship Specialty Start Date End Date Arnie Balderas [place] [id number] 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
== END 2025-04-08 23:59 | disposition home or self-care (01) ==
LOC: LAB.DROPOF 04-09 12:07
PROVIDERS: PCP Nurse Practitioner; Visit Provider Nurse Practitioner
DX: J06.9 Acute upper respiratory infection, unspecified (principal)
CPT/HCPCS: 87631